=== PATIENT | female | born 1995 | race Caucasian/White ===

== ENCOUNTER 2017-02-19 08:23 | Emergency (ER) | payer MEDICAID ==
[2017-02-19 08:29] VITALS: BP 120/77; PULSE 86
[2017-02-19 08:34] VITALS: TEMP 98.4; O2SAT 98
--- NOTE | 2017-02-19 10:05 | ED PDOC ---
HPI: General Adult Time Seen by Provider: 02/19/17 08:41 Chief Complaint (Nursing): Dizziness/Lightheaded Chief Complaint (Provider): Dizziness/Lightheaded History Per: Patient History/Exam Limitations: no limitations Current Symptoms Are (Timing): Still Present Severity: Mild Additional Complaint(s): Patient is a 21 year old female who presents to ED for evaluation of urinary frequency and dysuria for 1 days. Patient also reports mild dizziness without headache. Notes history of previous UTI and these symptoms feeling similar. Patient also reports, " normal vaginal discharge." Denies painful sex, fever or back pain. Past Medical History Reviewed: Historical Data, Nursing Documentation, Vital Signs Vital Signs: Last Vital Signs Temp 98.4 F 02/19/17 08:32 Pulse 86 02/19/17 08:27 Resp BP 120/77 02/19/17 08:27 Pulse Ox 98 02/19/17 08:32 - Medical History PMH: Asthma - Surgical History Surgical History: No Surg Hx - Family History Family History: States: Unknown Family Hx - Home Medications Home Medications: Ambulatory Orders Medication Instructions Recorded Ciprofloxacin [Cipro] 500 mg PO BID #6 tab 02/19/17 Phenazopyridine [Pyridium] 100 mg PO BID #6 tab 02/19/17 - Allergies Allergies/Adverse Reactions: Allergies Allergy/AdvReac Type Severity Reaction Status Date / Time No Known Allergies Allergy Verified 02/19/17 08:31 Review of Systems ROS Statement: Except As Marked, All Systems Reviewed And Found Negative Constitutional: Negative for: Fever Genitourinary Female: Positive for: Dysuria, Frequency. Negative for: Hematuria , Vaginal Bleeding, Pelvic Pain Musculoskeletal: Negative for: Back Pain Skin: Negative for: Rash Neurological: Negative for: Weakness Physical Exam - Reviewed Nursing Documentation Reviewed: Yes Vital Signs Reviewed: Yes - Physical Exam Appears: Positive for: Non-toxic, No Acute Distress Skin: Positive for: Normal Color, Warm Eye Exam: Positive for: Normal appearance Neck: Positive for: Normal, Painless ROM Cardiovascular/Chest: Positive for: Regular Rate, Rhythm. Negative for: Murmur Respiratory: Positive for: Normal Breath Sounds. Negative for: Respiratory Distress Gastrointestinal/Abdominal: Positive for: Normal Exam. Negative for: Tenderness , Distended Pelvic Exam: Positive for: No Cerv. Motion Tender, No Masses, Discharge ((+) trace cervicitis with trace white hematogenous discharge. No bleeding or lesions ) Back: Positive for: Normal Inspection Extremity: Positive for: Normal ROM Neurologic/Psych: Positive for: Alert, Oriented - ECG O2 Sat by Pulse Oximetry: 98 (RA) Pulse Ox Interpretation: Normal Medical Decision Making Medical Decision Making: Time: 0850 Initial impression: Simple UTI Initial plan: -- EKG -- Urine preg -- Urine dip -- Chlamydia/ GC RNS -- Genital Culture Accucheck Normal Urine preg: Negative U-Dip: (+) leukocytes Patient will be discharged at this time on Cipro and Pyrdium, recommended [employer] SEALING MACHINE OPERATOR for evaluation and STD follow up. Scribe Attestation: Documented by Yajaira Patel acting as a scribe for Brown Jackman DO MD Scribe Attestation: All medical record entries made by the Scribe were at my direction and personally dictated by me. I have reviewed the chart and agree that the record accurately reflects my personal performance of the history, physical exam, medical decision making, and the department course for this patient. I have also personally directed, reviewed, and agree with the discharge instructions and disposition. Disposition - Clinical Impression Clinical Impression: Dizziness, UTI (urinary tract infection) - Disposition Referrals: Hill Christian DO [Staff Provider] - Miguel Mayo MD [Staff Provider] - Disposition: Routine/Home Disposition Time: 09:45 Condition: STABLE Additional Instructions: Take medication as directed for UTI. Pyridium will turn your urine orange/red color. This is normal. See [employer] SEALING MACHINE OPERATOR for screening pap smear. Return to ER for any worse or new symptoms, fever, back pain or any concern. STD test results will be available in 2-3 days. Avoid exercise or heavy exertion for one week after you complete medication as cipro can cause tendon injuries. Prescriptions: Ciprofloxacin [Cipro] 500 mg PO BID #6 tab Phenazopyridine [Pyridium] 100 mg PO BID #6 tab Instructions: Urinary Tract Infection in Women (ED), Dysuria (ED)
--- NOTE | 2017-02-20 09:50 | CARD ---
APPROVED REPORT EKG Measurement Heart [id number] <Conclusion> Normal sinus rhythm Rightward axis Borderline ECG
== END 2017-02-19 09:57 | disposition home or self-care (01) ==
LOC: H.ER 08:23
DX: R42 Dizziness and giddiness (principal); N39.0 Urinary tract infection, site not specified; R30.0 Dysuria; J45.909 Unspecified asthma, uncomplicated

== ENCOUNTER 2017-02-23 06:18 | Observation (INO) | payer MEDICAID ==
[2017-02-23 06:34] VITALS: BP 122/69; PULSE 85; RESP 16; TEMP 98.4; O2SAT 100
--- NOTE | 2017-02-23 07:21 | ED PDOC ---
HPI: General Adult Time Seen by Provider: 02/23/17 07:00 Chief Complaint (Nursing): Back Pain Chief Complaint (Provider): abdominal pain History Per: Patient History/Exam Limitations: no limitations Additional Complaint(s): 21yo female comes to the ED complaining of bilateral lower abdominal pain this morning while at work when bending over. She has nausea but no fever or diarrhea. States she was told she had an ovarian cyst in the past but never followed up with an obgyn. Past Medical History Reviewed: Historical Data, Nursing Documentation, Vital Signs Vital Signs: Last Vital Signs Temp 98.4 F 02/23/17 06:31 Pulse 85 02/23/17 06:31 Resp 16 02/23/17 06:31 BP 122/69 02/23/17 06:31 Pulse Ox 100 02/24/17 16:55 - Medical History PMH: Asthma Denies: Chronic Kidney Disease - Surgical History Surgical History: No Surg Hx - Family History Family History: States: Unknown Family Hx - Social History Current smoker - smoking cessation education provided: No Alcohol: None Drugs: Cannabis - Home Medications Home Medications: Ambulatory Orders Medication Instructions Recorded Nitrofurantoin Macrocrystals 100 mg PO BID #14 cap 02/23/17 [Macrobid] - Allergies Allergies/Adverse Reactions: Allergies Allergy/AdvReac Type Severity Reaction Status Date / Time shrimp Allergy RASH Verified 02/23/17 06:31 Review of Systems ROS Statement: Except As Marked, All Systems Reviewed And Found Negative Constitutional: Negative for: Fever Gastrointestinal: Positive for: Nausea, Abdominal Pain. Negative for: Vomiting , Diarrhea Physical Exam - Reviewed Nursing Documentation Reviewed: Yes Vital Signs Reviewed: Yes - Physical Exam Appears: Positive for: Well, Non-toxic, No Acute Distress Head Exam: Positive for: ATRAUMATIC, NORMAL INSPECTION, NORMOCEPHALIC Skin: Positive for: Warm, Dry Eye Exam: Positive for: EOMI, PERRL Cardiovascular/Chest: Positive for: Regular Rate, Rhythm Respiratory: Positive for: Normal Breath Sounds. Negative for: Rales, Rhonchi, Wheezing Gastrointestinal/Abdominal: Positive for: Soft, Tenderness (left upper quadrant) . Negative for: Guarding, Rebound Back: Negative for: L CVA Tenderness, R CVA Tenderness Extremity: Positive for: Normal ROM Neurologic/Psych: Positive for: Alert, Oriented - Laboratory Results Result Diagrams: 02/23/17 08:17 02/23/17 08:17 - ECG O2 Sat by Pulse Oximetry: 100 (RA) Pulse Ox Interpretation: Normal Medical Decision Making Medical Decision Makin: Impression abdominal pain rule out cyst, versus intraabdominal pathology Plan: CT abd/pel Labs IV Fluids reassess Time: 1251 CT-abdomen Impression: Complex primarily solid mass left ambreen pelvis 2.3x 3.7. Pelvic ultrasound including transvaginal technique is strongly recommended for further assessment base on finding and the clinical presentation Time: 1519 Transvaginal U/S Impression: Unremarkable pelvic ultrasound. Findings identified on recent CT are not duplicated on the current transvaginal u/s Time: 1531 Pelvic U/S Impression: Findings identified on CT performed the same day are not appreciated on the limited submitted views Trace left adnexal fluid patient aware of CT result and US results. appears comfortably and resting throughout ER stay. tolerated po. denies pain at this time. 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 pt noted to have UTI, given macrobid rx. ED OBSERVATION Date of observation admission: 02/23/17 Time of observation admission: 07:28 - Observation admission statement Patient is being placed in observation because:: need for addtional diagnostics to rule out acute or life threatening condition - Goals of Observation Goals of observation are:: resolution of symptoms - Progress Note Progress Note: 02/23/17 0900 vitals are stable 02/23/17 1100 resting comfortably 02/23/17 13:05 CT abd/pel w/ IMPRESSION: Complex primarily solid mass left ambreen pelvis 2.3 x 3.7 cm. Pelvic ultrasound including transvaginal technique strongly recommended for further assessment based on findings and the clinical presentation. Disposition - Clinical Impression Clinical Impression: UTI (urinary tract infection) - Patient ED Disposition Is Patient to be Admitted: No Counseled Patient/Family Regarding: Studies Performed, Diagnosis, Need For Followup - Disposition Disposition: Routine/Home Disposition Time: 11:00 Condition: IMPROVED Additional Comments - Additional Comments Additional Comments: Scribe Attestation: Documented by Urbano Teague acting as a scribe for Nael Conner MD. Provider Scribe Attestation: All medical record entries made by the Scribe were at my direction and personally dictated by me. I have reviewed the chart and agree that the record accurately reflects my personal performance of the history, physical exam, medical decision making, and the department course for this patient. I have also personally directed, reviewed, and agree with the discharge instructions and disposition.
[2017-02-23] MEDS ORDERED: Iohexol 240 (50 ml) PO ONE (07:26)
[2017-02-23] MEDS ORDERED: Sodium Chloride 0.9% 1,000 ML IV STA (07:28)
[2017-02-23] MEDS ORDERED: Iohexol 240 (50 ml) ONE (07:40)
[2017-02-23 08:25] LABS: BASO # 0.1 K/uL (0.0-0.2); BASO % 0.7 % (0.0-2.0); EOS # 0.4 K/uL (0.0-0.7); EOS % 3.5 % (0.0-4.0); HEMATOCRIT 39.6 % (34.0-47.0); LYMPH # 2.4 K/uL (1.0-4.3); LYMPH % 20.9 % (20.0-40.0); MEAN CELL VOLUME 86.7 fl (81.0-99.0); MEAN CORPUSCULAR HEMOGLOBIN 28.3 pg (27.0-31.0); MEAN CORPUSCULAR HGB CONC 32.6 g/dL (33.0-37.0); MEAN PLATELET VOLUME 9.4 fl (7.2-11.7); MONO # 1.1 K/uL (0.0-0.8); MONO % 9.2 % (0.0-10.0); NEUT # 7.7 K/uL (1.8-7.0); NEUT % 65.7 % (50.0-75.0); RED CELL DISTRIBUTION WIDTH 13.8 % (11.5-14.5); WHITE BLOOD COUNT 11.7 K/uL (4.8-10.8)
[2017-02-23 08:58] LABS: ALB/GLOB RATIO 1.5 (1.0-2.1); ALKALINE PHOSPHATASE 62 U/L (38-126); ALT/SGPT 36 U/L (9-52); AST/SGOT 28 U/L (14-36); BILIRUBIN,TOTAL 0.4 mg/dl (0.2-1.3); BLOOD UREA NITROGEN 12 mg/dl (7-17); CALCIUM 9.7 mg/dL (8.4-10.2); CARBON DIOXIDE 26 mmol/L (22-30); CHLORIDE 104 mmol/L (98-107); GFR AFRICAN-AMERICAN > 60; GLUCOSE,RANDOM 94 mg/dL (65-105); LIPASE 75 U/L (23-300); SODIUM 141 mmol/l (132-148); TOTAL PROTEIN 7.9 G/DL (6.3-8.2)
[2017-02-23] MEDS ORDERED: Iohexol 300 100 ML IJ ONE (09:34)
[2017-02-23] MEDS ORDERED: Iodixanol 320 MG/ML 100 ML BOTTLE IV ONE (11:02)
[2017-02-23] MEDS ORDERED: DiphenhydrAMINE 50 mg/ml Inj IVP STA (11:09)
[2017-02-23 11:13] LABS: URINE BILIRUBIN NEGATIVE (NEGATIVE); URINE BLOOD MODERATE (NEGATIVE); URINE COLOR STRAW (YELLOW); URINE GLUCOSE (UA) NEG (Normal); URINE KETONE NEGATIVE (NEGATIVE); URINE LEUKOCYTE ESTERASE MOD Leu/uL (Negative); URINE PROTEIN NEGATIVE (NEGATIVE); URINE UROBILINOGEN 0.2-1.0 mg/dL (0.2-1.0); WBC URINE 42 /hpf (0-5)
[2017-02-23] MEDS ORDERED: DiphenhydrAMINE 50 mg/ml Inj ONE (11:25)
--- NOTE | 2017-02-23 12:53 | CT ---
PROCEDURE: CT Abdomen and Pelvis with contrast HISTORY: abdominal pain left sided COMPARISON: None. TECHNIQUE: Contrast dose: 90 cc Visipaque 320. Radiation dose: Total exam DLP = 340.29 mGy-cm. This CT exam was performed using one or more of the following dose reduction techniques: Automated exposure control, adjustment of the mA and/or kV according to patient size, and/or use of iterative reconstruction technique. FINDINGS: LOWER THORAX: Unremarkable. LIVER: Unremarkable. No gross lesion or ductal dilatation. GALLBLADDER AND BILE DUCTS: Unremarkable. PANCREAS: Unremarkable. No gross lesion or ductal dilatation. SPLEEN: Unremarkable. ADRENALS: Unremarkable. No mass. KIDNEYS AND URETERS: Unremarkable. No hydronephrosis. No solid mass. VASCULATURE: Unremarkable. No aortic aneurysm. BOWEL: Constipation without fecal impaction or obstruction. APPENDIX: Normal appendix. PERITONEUM: Unremarkable. No free fluid. No free air. LYMPH NODES: Unremarkable. No enlarged lymph nodes. BLADDER: Unremarkable. REPRODUCTIVE: Eccentric left adnexal mass perhaps fibroid or solid mass within the left adnexa. Please refer to series 2, image 123 and coronal series 601 images 42-55 Differentiating these findings without pelvic ultrasound is difficult. BONES: OTHER FINDINGS: None. IMPRESSION: Complex primarily solid mass left ambreen pelvis 2.3 x 3.7 cm. Pelvic ultrasound including transvaginal technique strongly recommended for further assessment based on findings and the clinical presentation.
--- NOTE | 2017-02-23 15:21 | US ---
HISTORY: evaluate mass in pelvis COMPARISON: February 23, 2017. Pelvic and abdominal CT. TECHNIQUE: Transvaginal only. Real -time technique with 2D, duplex and color Doppler FINDINGS: UTERUS: Measures 5.3 x 3.7 x 7.8 cm. Normal in size and appearance. No fibroid or other mass lesion seen. ENDOMETRIUM: Measures 5.1 mm in diameter. No ultrasound findings to suggest gestational sac, fluid, debris, mass or polyp or other pathologic process within the endometrium. CERVIX: No cervical abnormality identified. RIGHT OVARY: Measures 2.2 x 3.9 cm. No solid mass. Normal flow. Multiple subcentimeter follicles. LEFT OVARY: Measures 2.1 x 3 cm. No solid mass. Normal flow. Multiple subcentimeter follicles. FREE FLUID: No significant free fluid noted. OTHER FINDINGS: None. IMPRESSION: Unremarkable pelvic ultrasound. Findings identified on recent CT are not duplicated on the current transvaginal ultrasound.
--- NOTE | 2017-02-23 15:33 | US ---
HISTORY: possible pelvic mass COMPARISON: CT of the abdomen and pelvis with contrast performed 02/23/17, transvaginal pelvic ultrasound performed the same day. TECHNIQUE: Transabdominal pelvic ultrasound FINDINGS: UTERUS: Measures 6.8 x 5.4 x 3.2 cm. Anteverted. ENDOMETRIUM: Measures 8 mm in diameter. RIGHT OVARY: Measures 2.5 x 3.7 x 2.3 cm. Blood flow is demonstrated. LEFT OVARY: Measures 2.6 x 1.7 x 1.7 cm. Blood flow is demonstrated. FREE FLUID: Trace fluid within the left adnexa. OTHER FINDINGS: None. IMPRESSION: Findings identified on CT performed the same day are not appreciated on the limited submitted views. Trace left adnexal fluid.
== END 2017-02-23 16:33 | disposition home or self-care (01) ==
LOC: H.ER 06:18 → H.EROBSV 07:28
PROVIDERS: ADMIT Emergency Medicine; ATTEND Emergency Medicine
DX: N39.0 Urinary tract infection, site not specified (principal); J45.909 Unspecified asthma, uncomplicated